=== PATIENT | female | born 1960 | race Caucasian/White ===

== ENCOUNTER 2018-01-24 06:58 | Day surgery (SDC) | payer OTHER ==
[2018-01-24] MEDS ORDERED: CLINDAMYCIN 600 MG/D5W (PMX) 50 ML IVPB (07:00)
[2018-01-24] MEDS ORDERED: NEOSTIGMINE 3 MG/3 ML SYRINGE (07:00)
[2018-01-24] MEDS ORDERED: SOD CHLORIDE 0.9% 1,000 ML IV (07:00)
[2018-01-24] MEDS ORDERED: GLYCOPYRROLATE 0.4 MG INJ (07:00)
[2018-01-24] MEDS ORDERED: CEFAZOLIN 1 GM INJ (07:00)
[2018-01-24] MEDS ORDERED: LIDOCAINE 2% (SDV) 5 ML INJ (07:00)
[2018-01-24] MEDS ORDERED: PROPOFOL 100 ML (08:56)
[2018-01-24] MEDS ORDERED: FENTAnyl 50 MCG/ML VIAL (08:57)
[2018-01-24] MEDS ORDERED: ROCURONIUM 50 MG INJ (08:57)
[2018-01-24] MEDS ORDERED: FENTAnyl 50 MCG/ML VIAL IV ×2 (09:00)
[2018-01-24] MEDS ORDERED: EPHEDrine SULFATE 50 MG/5 ML SYG IV (09:00)
[2018-01-24] MEDS ORDERED: DIPHENHYDRAMINE 50 MG INJ IV (09:00)
[2018-01-24] MEDS ORDERED: SUGAMMADEX SODIUM 200 MG/2 ML VIAL IV (09:00)
[2018-01-24] MEDS ORDERED: hydrALAzine 20 MG INJ IV (09:00)
[2018-01-24] MEDS ORDERED: ALBUTEROL 0.083% (NEB) 2.5 MG/3 ML AMP HHN (09:00)
[2018-01-24] MEDS ORDERED: MEPERIDINE 25 MG INJ IV (09:00)
[2018-01-24] MEDS ORDERED: OXYCODONE/ACETAMINOPHEN (5/325) TAB PO ×2 (09:00)
[2018-01-24] MEDS ORDERED: KETOROLAC 30 MG INJ IV (09:00)
[2018-01-24] MEDS ORDERED: LABETALOL HCL 20MG INJ IV (09:00)
[2018-01-24] MEDS ORDERED: HYDROmorphONE (0.2 MG/ML) 10ML SYG IV ×3 (09:00)
[2018-01-24] MEDS ORDERED: ACETAMINOPHEN 1000MG/100ML IV 100 ML (09:02)
[2018-01-24] MEDS ORDERED: MIDAZOLAM 1 MG/ML 2 ML INJ (09:11)
[2018-01-24] MEDS: BUPIVACAINE 0.25% (MPF) 30 ML INJ (09:32)
[2018-01-24] MEDS ORDERED: DEXAMETHASONE 4 MG/ML 1 ML INJ (09:43)
[2018-01-24] MEDS ORDERED: ONDANSETRON 4 MG INJ (09:46)
[2018-01-24] MEDS ORDERED: HYDROCODONE/APAP (5/325) TAB PO (10:00)
[2018-01-24] MEDS: FENTAnyl 50 MCG/ML VIAL IV ×2 (10:15→10:22)
[2018-01-24] MEDS: ONDANSETRON 4 MG INJ IV (10:15)
== END 2018-01-24 11:28 | disposition home or self-care (01) ==
LOC: SDS 06:58
DX: K80.10 Calculus of gallbladder with chronic cholecystitis without obstruction (principal); E66.9 Obesity, unspecified; Z68.30 Body mass index [BMI] 30.0-30.9, adult
CPT/HCPCS: 47562; 88304